=== PATIENT | female | born 1930 | race Caucasian/White ===

== ENCOUNTER 2018-06-08 08:29 | Inpatient (IN) ==
[2018-06-11] MEDS ORDERED: Nitroglycerin 0.4 MG TAB.SUBL SL PRN (15:32)
[2018-06-11] MEDS ORDERED: Ipratropium/Albuterol Neb 3 ML IH PRN (15:32)
[2018-06-11] MEDS ORDERED: *HR* LORazepam 0.5 MG TABLET PO PRN (15:32)
[2018-06-11] MEDS ORDERED: *HR* HYDROcodone/Acet 7.5/325 mg TABLET PO PRN (15:32)
[2018-06-11] MEDS: Ondansetron ODT 4 MG TAB.RAPDIS SL PRN (16:46)
[2018-06-11] MEDS: Scopolamine Patch 1.5 MG PATCH.TD72 TD SCH (16:46)
--- NOTE | 2018-06-11 17:11 | Internal Med History&Physical ---
Date of Encounter: 06/11/18 Time of Encounter: 16:45 Assessment and Plan (1) Colon cancer Current visit: No Status: Acute Status post resection 06/04/2018. Continue postop care and follow-up with surgeon as directed. Qualifiers: Colon location: descending Qualified Code(s): C18.6 - Malignant neoplasm of descending colon (2) HTN (hypertension) Current visit: No Status: Chronic Continue Coreg and Lasix. Qualifiers: Hypertension type: essential hypertension Qualified Code(s): I10 - Essential (primary) hypertension (3) Hypothyroidism Current visit: No Status: Chronic TSH was slightly elevated at 7.025 on 05/07/2018. Recheck in a.m. Qualifiers: Hypothyroidism type: unspecified Qualified Code(s): E03.9 - Hypothyroidism , unspecified Internal Medicine - H&P: HPI Chief complaint: Colon cancer resection Admitted From: Hospital to Hospital Transfer Plans for Post Hospital Care: Home History of present illness: Ms. Ariza is a 88 year old female underwent elective partial transverse/ distal colectomy 06/04/2018 at [facility] for colon cancer. Her postop course was unremarkable and she was discharged to [facility] swing bed for ongoing care needs. The cancer was stage IIA. She states she is now cancer free. She denies other previous malignancies blood disorders or anemia. Past Med Surg Social Fam HX - Past Medical History Medical history: arthritis, atrial fibrillation, CHF, dementia, hyperlipidemia, hypertension, other Psychiatric history: anxiety, depression - Past Surgical History Surgical History: cataract, hysterectomy, knee replacement, thyroidectomy, other Additional surgical history: right hip surgery, goiter, left knee replacement, colonoscopy, Mohs sx rt helix, cataract b/l, LAYLA, thyroidectomy - Social History Smoking Status: Never smoker Smokeless Tobacco Status: No Alcohol use: none Drug use: none - Family History Mother Family Member Ethnicity: Non- Living Status: Hx Family Cardiac Disorders: Yes Hx Family Cancer: Yes (Sqaumous cell carcinoma) Father Family Member Ethnicity: Non- Living Status: Hx Family Cancer: Yes (Lung) Internal Medicine - H&P: Meds Carvedilol [Coreg] 25 mg PO BID 09/16/17 [History] Nitroglycerin [Nitrostat] 0.4 mg SL Q5M PRN 09/16/17 [History] Olmesartan Medoxomil [Benicar] 40 mg PO DAILY 09/16/17 [History] Rosuvastatin Calcium [Crestor] 10 mg PO DAILY 09/16/17 [History] Sertraline [Zoloft] 25 mg PO DAILY 09/16/17 [History] Dexlansoprazole [Dexilant] 60 mg PO DAILY 02/24/18 [History] LORazepam [Ativan] 0.5 mg PO TID PRN 02/24/18 [History] Levothyroxine Sodium [Levoxyl] 112 mcg PO DAILY 02/24/18 [History] Furosemide [Lasix] 40 mg PO DAILY 7 Days #7 tablet 03/01/18 [Rx] Ipratropium/Albuterol Neb [Duoneb] 3 ml IH Q6HR PRN 7 Days #28 vial.neb [Rx] Calcium Carbonate/Vitamin D3 [Calcium 500 + Vit D Caplet] 1 each PO BID #60 tablet 04/19/18 [Rx] Ergocalciferol (VITAMIN D2) [Vitamin D] 400 unit PO BID #60 tablet 04/19/18 [Rx] Docusate [Colace] 100 mg PO BID PRN #30 capsule 06/11/18 [Rx] HYDROcodone/Acet 7.5/325 mg [[place] 7.5-325 mg] 1 tab PO Q6H PRN 7 Days #28 tablet 06/11/18 [Rx] Ondansetron ODT [Zofran ODT] 4 mg SL Q4HR PRN #15 tab.rapdis 06/11/18 [Rx] Scopolamine Patch [Transderm-Scop] 1.5 mg TD Q72H patch.td72 06/11/18 [Rx] 3 Allergy/AdvReac Type Severity Reaction Status Date / Time codeine Allergy Rash Verified 09/15/17 16:16 Opioids - Morphine Analogues Allergy Rash Verified 09/15/17 16:16 Sulfa (Sulfonamide Allergy Rash Verified 09/15/17 16:16 Antibiotics) cephalexin AdvReac Nausea Verified 04/19/18 13:13 All Systems PM: A 10-system review of systems was performed and is negative for pertinent findings except as documented above in the HPI. Review of systems: Gen.: Her weight has decreased from 64.41 kg on 09/20/2017 to 49.442 kg on admission now. Cardiovascular: She has history of hypertension. She has reported paroxysmal atrial fibrillation but cardiology evaluation 09/02/2018 reports patient has never had confirmed atrial fibrillation. She has sinus rhythm with PACs.. She has been on Coumadin and Xarelto in the past for DVT but developed GI bleeding. Echocardiogram 05/02/2018 showed LVEF of 60-65% with interventricular septum and posterior wall thickness measurements slightly elevated at 1.20 cm each. There was mild diastolic dysfunction with E/A ratio of 0.6. There was mild aortic regurgitation and stenosis with mean gradient of 16 mmHg. Respiratory: She is a lifelong nonsmoker and denies chronic lung disease. She has history of MAAME and has CPAP at home. GI: She had recent segmental colon resection as per above. She denies disorders of her liver gallbladder or exocrine pancreas. : She has had hysterectomy. She denies disorders of her kidney or bladder. Neurologic: She denies large distribution strokes or seizures. Endocrine: She had goiter resection at age 18. She has hypothyroidism and is on Synthroid. She denies diabetes. She has hyperlipidemia. Hematology/oncology: As per history of present illness Psychiatric: She has anxiety and depression denies other mental health issues [place] skeletal: She has DJD but denies gout or other bone joint or muscle disorders. - Constitutional Vitals: Temp Pulse Resp BP Pulse Ox 99.2 F 72 16 143/66 97 06/11/18 14:33 06/11/18 14:33 06/11/18 14:33 06/11/18 14:33 06/11/18 14:33 Exam: Gen.: She is a well-developed lean female resting comfortably in bed who appears in no acute distress HEENT: Head is atraumatic and normocephalic. Eyes: EOMI. There is no scleral icterus. Mouth: Mucosa is moist. Neck: Supple and nontender. There is no thyromegaly or adenopathy noted. Heart: Regular without murmurs gallops or ectopics Lungs: No wheezes or crackles are heard. Back: She has dorsal kyphosis. There is no flank tenderness. Abdomen: She has a midline incision in the upper abdominal area approximately 8 cm length with staple closure. No masses or guarding are noted. The abdomen is nontender to palpation. Extremities: There is no cyanosis edema or clubbing noted. Dorsalis pedis and posttibial pulses are trace to 1+ palpable bilaterally. She has DJD changes of her hands. Neurologic: Mental status: She is talkative and seems to be a fair to good historian. She does not remember some details of her history. Cranial nerves: Smile is symmetric. Forehead wrinkles bilaterally. Tongue protrudes midline. EOMI. Motor: There is no pronator drift. Cerebellar: Finger to nose is intact bilaterally. Skin: Warm and dry
[2018-06-11] MEDS: (Calcium Carbonate/Vitamin D3 [Calcium 500 + Vit D Ca) PO SCH (21:01)
[2018-06-12 06:01] LABS: Basophils # 0.1 K/mcL (0.0-0.2); Basophils % 0.7 %; Eosinophils # 0.6 K/mcL (0.0-0.6); Hematocrit 37.1 % (35.3-44.9); Immature Granulocytes % 0.4 % (0-4); Mean Corpuscular HGB Conc 32.3 g/dL (31.6-35.5); Mean Corpuscular Hemoglobin 29.1 pg (28.0-33.3); Mean Platelet Volume 10.2 fL (9.4-12.4); Monocytes # 0.5 K/mcL (0.0-1.3); Monocytes % 7.3 %; Neutrophils # 4.6 K/mcL (1.6-8.9); Platelet Count 145 K/mcL (140-400); Red Blood Count 4.12 M/mcL (3.82-4.97); Red Cell Distribution Width 14.9 % (11.5-14.5); Segmented Neutrophils % 67.6 %
[2018-06-12 06:28] LABS: BUN/Creatinine Ratio 19 (6-26); Blood Urea Nitrogen 16 mg/dL (8-23); Calcium 8.8 mg/dL (8.6-10.3); Carbon Dioxide 26 mEq/L (23-29); Chloride 106 mEq/L (98-107); Glucose 91 mg/dL (70-105); Osmolality,Calculated 289 (280-300); Potassium 3.9 mEq/L (3.5-5.1); Sodium 139 mEq/L (136-145); eGFR For Non-African Americans > 60 (> 60)
[2018-06-12] MEDS ORDERED: Levothyroxine 25 MCG TABLET PO SCH (06:30)
[2018-06-12] MEDS: Furosemide 40 MG TABLET PO SCH (08:59)
[2018-06-12] MEDS: (Calcium Carbonate/Vitamin D3 [Calcium 500 + Vit D Ca) PO SCH ×2 (08:59→22:10)
[2018-06-12] MEDS: Valsartan 160 MG TABLET PO SCH (09:01)
--- NOTE | 2018-06-12 15:59 | Internal Med Progress Note ---
Date of Encounter: 06/12/18 Time of Encounter: 15:50 - Assessment and plan (1) Colon cancer Current Visit: No Status: Acute Assessment and plan: June 12. Status post resection 06/04/2018. Continue postop care and follow up with surgeon as directed. Qualifiers: Colon location: descending Qualified Code(s): C18.6 - Malignant neoplasm of descending colon (2) HTN (hypertension) Current Visit: No Status: Chronic Assessment and plan: June 12. Continue Coreg, Diovan and Lasix Qualifiers: Hypertension type: essential hypertension Qualified Code(s): I10 - Essential (primary) hypertension (3) Hypothyroidism Current Visit: No Status: Chronic Assessment and plan: June 12. TSH is normal at 3.769. Continue present dose Synthroid. Qualifiers: Hypothyroidism type: unspecified Qualified Code(s): E03.9 - Hypothyroidism , unspecified - Subjective Interval history: June 12. She has no new complaints. - Constitutional Vitals: Temp Pulse Resp BP Pulse Ox 100.6 F H 78 17 159/71 97 06/12/18 13:09 06/12/18 13:09 06/12/18 13:09 06/12/18 13:09 06/12/18 13:09 Exam: She is resting comfortably in bed and appears in no acute distress. Her affect is bright and cheerful. I reviewed her medications and lab results. Internal Medicine: Result - Labs CBC & Chem 7: 06/12/18 05:45 06/12/18 05:45 Labs: Short CBC 06/12/18 Range/Units 05:45 WBC 6.8 (4.3-11.1) K/mcL Hgb 12.0 (11.5-15.4) g/dL Hct 37.1 (35.3-44.9) % Plt Count 145 (140-400) K/mcL Neutrophils # 4.6 (1.6-8.9) K/mcL BMP 06/12/18 05:45 Sodium 139 Potassium 3.9 Chloride 106 Carbon Dioxide 26 BUN 16 Creatinine 0.83 Glucose 91 Calcium 8.8 - VTE Documentation of Mechanical Device: Graduated compression elastic hosiery Consult Discharge Plan - Plan Referrals: Keon Marquez MD [Primary Care Provider] - 1 week
[2018-06-12] MEDS: Ondansetron ODT 4 MG TAB.RAPDIS SL PRN (17:26)
[2018-06-12] MEDS: Cholecalciferol (D-3) 1,000 UNIT TABLET PO SCH (22:10)
[2018-06-13] MEDS: Valsartan 160 MG TABLET PO SCH (08:57)
[2018-06-13] MEDS: Furosemide 40 MG TABLET PO SCH (08:59)
[2018-06-13] MEDS: (Calcium Carbonate/Vitamin D3 [Calcium 500 + Vit D Ca) PO SCH (09:02)
[2018-06-13] MEDS: Ondansetron ODT 4 MG TAB.RAPDIS SL PRN ×3 (11:34→20:28)
[2018-06-13] MEDS: Cholecalciferol (D-3) 1,000 UNIT TABLET PO SCH (20:27)
[2018-06-14] MEDS: (Calcium Carbonate/Vitamin D3 [Calcium 500 + Vit D Ca) PO SCH ×3 (04:50→20:22)
[2018-06-14] MEDS: Ondansetron ODT 4 MG TAB.RAPDIS SL PRN ×3 (06:15→14:59)
[2018-06-14] MEDS: Furosemide 40 MG TABLET PO SCH (08:23)
[2018-06-14] MEDS: Valsartan 160 MG TABLET PO SCH (08:27)
--- NOTE | 2018-06-14 12:02 | Internal Med Progress Note ---
Date of Encounter: 06/14/18 Time of Encounter: 11:55 - Assessment and plan (1) Colon cancer Current Visit: No Status: Acute Assessment and plan: June 12. Status post resection 06/04/2018. Continue postop care and follow up with surgeon as directed. June 14. Continue present care. Anticipate discharge home 06/16/2018 with home health services. Qualifiers: Colon location: descending Qualified Code(s): C18.6 - Malignant neoplasm of descending colon (2) HTN (hypertension) Current Visit: No Status: Chronic Assessment and plan: June 12. Continue Coreg, Diovan and Lasix Qualifiers: Hypertension type: essential hypertension Qualified Code(s): I10 - Essential (primary) hypertension (3) Hypothyroidism Current Visit: No Status: Chronic Assessment and plan: June 12. TSH is normal at 3.769. Continue present dose Synthroid. Qualifiers: Hypothyroidism type: unspecified Qualified Code(s): E03.9 - Hypothyroidism , unspecified - Subjective Interval history: June 12. She has no new complaints. June 14. She has no new complaints and feels well. - Constitutional Vitals: Temp Pulse Resp BP Pulse Ox 98.3 F 64 14 172/71 96 06/14/18 07:22 06/14/18 07:22 06/14/18 07:22 06/14/18 07:22 06/14/18 07:22 Exam: She is resting comfortably in bed and appears in no acute distress. Her affect is bright and cheerful. I reviewed her medications and lab results. Internal Medicine: Result - Labs CBC & Chem 7: 06/12/18 05:45 06/12/18 05:45 - VTE Documentation of Mechanical Device: Graduated compression elastic hosiery Consult Discharge Plan - Plan Referrals: Keon Marquez MD [Primary Care Provider] - 06/20/18 1:00 pm (Moni see Eboni Pearl [employer])
[2018-06-14] MEDS: Scopolamine Patch 1.5 MG PATCH.TD72 TD SCH (15:00)
[2018-06-14] MEDS: Cholecalciferol (D-3) 1,000 UNIT TABLET PO SCH (20:21)
[2018-06-15] MEDS: Ondansetron ODT 4 MG TAB.RAPDIS SL PRN ×3 (07:30→16:23)
[2018-06-15] MEDS: Furosemide 40 MG TABLET PO SCH (08:26)
[2018-06-15] MEDS: Valsartan 160 MG TABLET PO SCH (08:27)
[2018-06-15] MEDS: (Calcium Carbonate/Vitamin D3 [Calcium 500 + Vit D Ca) PO SCH ×2 (08:32→20:20)
[2018-06-15] MEDS: Cholecalciferol (D-3) 1,000 UNIT TABLET PO SCH (20:19)
[2018-06-16 08:23] VITALS: BP 155/68
--- NOTE | 2018-06-16 09:13 | Discharge Summary ---
Date of Encounter: 06/16/18 Time of Encounter: 09:05 - Discharge Diagnosis (1) Colon cancer Priority: Primary Status: Acute Qualifiers: Colon location: descending Qualified Code(s): C18.6 - Malignant neoplasm of descending colon (2) HTN (hypertension) Priority: Secondary Status: Chronic Qualifiers: Hypertension type: essential hypertension Qualified Code(s): I10 - Essential (primary) hypertension (3) Hypothyroidism Priority: Secondary Status: Chronic Qualifiers: Hypothyroidism type: unspecified Qualified Code(s): E03.9 - Hypothyroidism , unspecified Hospital course: Ms. Ariza is a 88 year old female who underwent elective partial transverse/ distal colectomy 06/04/2018 at [facility] for colon cancer. Her postop course was unremarkable and she was discharged to [facility] swing bed for ongoing care needs. Initial orders written by the emergency room physician. I saw her on June 11 and performed a history and physical. She had physical therapy and occupational therapy evaluation with ongoing intervention. She made satisfactory progress. There were no complications and on June 16 arrangements were complete for her to be discharged home. She will have home health services. She will follow with her PCP within 1 week. She will follow with surgeons as directed. - Time Spent with Patient Total time spent providing and/or coordinating discharge services: - Discharge Medications Home Medications: Carvedilol [Coreg] 25 mg PO BID 09/16/17 [History] Nitroglycerin [Nitrostat] 0.4 mg SL Q5M PRN 09/16/17 [History] Olmesartan Medoxomil [Benicar] 40 mg PO DAILY 09/16/17 [History] Rosuvastatin Calcium [Crestor] 10 mg PO DAILY 09/16/17 [History] Sertraline [Zoloft] 25 mg PO DAILY 09/16/17 [History] Dexlansoprazole [Dexilant] 60 mg PO DAILY 02/24/18 [History] LORazepam [Ativan] 0.5 mg PO TID PRN 02/24/18 [History] Levothyroxine Sodium [Levoxyl] 112 mcg PO DAILY 02/24/18 [History] Furosemide [Lasix] 40 mg PO DAILY 7 Days #7 tablet 03/01/18 [Rx] Ipratropium/Albuterol Neb [Duoneb] 3 ml IH Q6HR PRN 7 Days #28 vial.neb [Rx] Calcium Carbonate/Vitamin D3 [Calcium 500 + Vit D Caplet] 1 each PO BID #60 tablet 04/19/18 [Rx] Ergocalciferol (VITAMIN D2) [Vitamin D] 400 unit PO BID #60 tablet 04/19/18 [Rx] Docusate [Colace] 100 mg PO BID PRN #30 capsule 06/11/18 [Rx] HYDROcodone/Acet 7.5/325 mg [[place] 7.5-325 mg] 1 tab PO Q6H PRN 7 Days #28 tablet 06/11/18 [Rx] Ondansetron ODT [Zofran ODT] 4 mg SL Q4HR PRN #15 tab.rapdis 06/11/18 [Rx] Scopolamine Patch [Transderm-Scop] 1.5 mg TD Q72H patch.td72 06/11/18 [Rx] Allergies/Adverse Reactions: 3 Allergy/AdvReac Type Severity Reaction Status Date / Time codeine Allergy Rash Verified 09/15/17 16:16 Opioids - Morphine Analogues Allergy Rash Verified 09/15/17 16:16 Sulfa (Sulfonamide Allergy Rash Verified 09/15/17 16:16 Antibiotics) cephalexin AdvReac Nausea Verified 04/19/18 13:13 Date of admission: 06/11/18 14:16 Primary care physician: Keon Marquez MD Consults: 06/11/18 15:14 Consult to Occupational Therapy [CONS] Routine Comment: Evaluate, Plan and Implement Plan of Care Reason for Consult: Evaluate, Plan and Implement plan of care Does patient have active BEDREST order?: No Is patient medically & hemodynamically stable?: No Patient assessed for mobility or mobilized this visit?: Yes Consult to Physical Therapy [CONS] Routine Comment: Evaluate Plan and Imlement Plan of Care Reason for Consult: Evaluate, Plan, and Implement Plan of care Does patient have active BEDREST order?: No Is patient medically & hemodynamically stable?: Yes Patient assessed for mobility or mobilized this visit?: Yes Consult to Rate Examiner [CONS] Routine Reason for SW Consult: Discharge planning - Constitutional Vitals: Temp Pulse Resp BP Pulse Ox 99.1 F 77 16 155/68 95 06/16/18 08:22 06/16/18 08:22 06/16/18 08:22 06/16/18 08:22 06/16/18 08:22 - Patient Status Disposition: Home Health Service - Discharge Instructions Follow Up With: Keon Marquez MD [Primary Care Provider] - 06/20/18 1:00 pm (Moni see Eboni Pearl [facility]) - Diet and Activity Activity: resume usual activities as tolerated Diet: advance to your usual diet - VTE Documentation of Mechanical Device: Graduated compression elastic hosiery
--- NOTE | 2018-06-16 09:14 | Physician Discharge Referral ---
Home Health/Hosp Referral Info Transfer to: Home Health Attending Provider: Raffy Provider in Charge Post Discharge: PCP Gerard) - Diagnosis (1) Colon cancer Priority: Primary Status: Acute (2) HTN (hypertension) Priority: Secondary Status: Chronic (3) Hypothyroidism Priority: Secondary Status: Chronic - Respiratory Orders Smoking Cessation: Smoking cessation has been advised. For more information, call the [place] Tobacco Quit Line at 8-518-MAMK-NOW. - Diet/Nutrition Diet/Nutrition Orders: Regular - Activity Activity Orders: Walker - Services Needed Following services are medically necessary services: Nursing, Home Health Aide, Physical Therapy, Occupational Therapy - Transfer Medications Home Medications: Carvedilol [Coreg] 25 mg PO BID 09/16/17 [History] Nitroglycerin [Nitrostat] 0.4 mg SL Q5M PRN 09/16/17 [History] Olmesartan Medoxomil [Benicar] 40 mg PO DAILY 09/16/17 [History] Rosuvastatin Calcium [Crestor] 10 mg PO DAILY 09/16/17 [History] Sertraline [Zoloft] 25 mg PO DAILY 09/16/17 [History] Dexlansoprazole [Dexilant] 60 mg PO DAILY 02/24/18 [History] LORazepam [Ativan] 0.5 mg PO TID PRN 02/24/18 [History] Levothyroxine Sodium [Levoxyl] 112 mcg PO DAILY 02/24/18 [History] Furosemide [Lasix] 40 mg PO DAILY 7 Days #7 tablet 03/01/18 [Rx] Ipratropium/Albuterol Neb [Duoneb] 3 ml IH Q6HR PRN 7 Days #28 vial.neb [Rx] Calcium Carbonate/Vitamin D3 [Calcium 500 + Vit D Caplet] 1 each PO BID #60 tablet 04/19/18 [Rx] Ergocalciferol (VITAMIN D2) [Vitamin D] 400 unit PO BID #60 tablet 04/19/18 [Rx] Docusate [Colace] 100 mg PO BID PRN #30 capsule 06/11/18 [Rx] HYDROcodone/Acet 7.5/325 mg [[place] 7.5-325 mg] 1 tab PO Q6H PRN 7 Days #28 tablet 06/11/18 [Rx] Ondansetron ODT [Zofran ODT] 4 mg SL Q4HR PRN #15 tab.rapdis 06/11/18 [Rx] Scopolamine Patch [Transderm-Scop] 1.5 mg TD Q72H patch.td72 06/11/18 [Rx] Allergies/Adverse Reactions: 3 Allergy/AdvReac Type Severity Reaction Status Date / Time codeine Allergy Rash Verified 09/15/17 16:16 Opioids - Morphine Analogues Allergy Rash Verified 09/15/17 16:16 Sulfa (Sulfonamide Allergy Rash Verified 09/15/17 16:16 Antibiotics) cephalexin AdvReac Nausea Verified 04/19/18 13:13 Certification: Further, I certify that my clinical findings support that this patient is homebound (i.e. absences from home require considerable and taxing effort and are for medical reasons or sabianist services or infrequently or short duration when for other reasons) because: Homebound Reason: Leaving home requires considerable and taxing effort due to condition (Recent colon cancer resection surgery, weakness with ambulation.) Attestation: My signature below is to certify that this patient is under my care and that I, or nurse practitioner, or a physician's physician's assistant working with me, has a face-to -face encounter with this patient.
[2018-06-16] MEDS: (Calcium Carbonate/Vitamin D3 [Calcium 500 + Vit D Ca) PO SCH (10:05)
[2018-06-16] MEDS: Valsartan 160 MG TABLET PO SCH (10:05)
[2018-06-16] MEDS: Furosemide 40 MG TABLET PO SCH (10:05)
== END 2018-06-16 11:18 | disposition home health service (06) | DRG 376 ==
LOC: INPPIK 06-11 14:16
PROVIDERS: ADMIT Internal Medicine; ATTEND Internal Medicine

== ENCOUNTER 2018-06-21 16:11 | Inpatient (IN) ==
[2018-06-22] MEDS ORDERED: Bisacodyl 10 MG RECTAL SUPPOSITORY RC SCH (09:00)
[2018-06-22] MEDS ORDERED: hydrALAZINE 25 MG TABLET PO SCH (09:00)
[2018-06-22] MEDS: Sennosides/Docusate Sodium TABLET PO SCH ×2 (09:52→22:48)
[2018-06-22] MEDS: Multivit/Ca/Min/Fe/FA 1 TAB TABLET PO SCH (09:53)
[2018-06-22] MEDS: MOM Conc 10 ML UD.LIQ PO SCH (09:59)
[2018-06-22] MEDS: Miconazole 2% cream 118 GM TUBE TP SCH ×2 (10:03→22:48)
--- NOTE | 2018-06-22 16:15 | Internal Med History&Physical ---
Date of Encounter: 06/22/18 Time of Encounter: 15:55 Assessment and Plan (1) Humerus shaft fracture Current visit: Yes Status: Acute Continue immobilization. Analgesics will be given as needed. Check vitamin D level. Qualifiers: Encounter type: subsequent encounter Fracture type: closed Fracture morphology: unspecified fracture morphology Laterality: right Fracture healing: with routine healing Qualified Code(s): S42.301D - Unspecified fracture of shaft of humerus, right arm, subsequent encounter for fracture with routine healing (2) Compression fracture of L4 lumbar vertebra Current visit: Yes Status: Acute Continue analgesics. Check vitamin D level. Qualifiers: Encounter type: subsequent encounter Fracture type: closed Fracture healing: with routine healing Qualified Code(s): S32.040D - Wedge compression fracture of fourth lumbar vertebra, subsequent encounter for fracture with routine healing (3) HTN (hypertension) Current visit: No Status: Chronic Continue Coreg and hydralazine. Qualifiers: Hypertension type: essential hypertension Qualified Code(s): I10 - Essential (primary) hypertension (4) Hypothyroidism Current visit: No Status: Chronic TSH was normal at 3.769 on 06/12/2018. Continue present dose Synthroid. Qualifiers: Hypothyroidism type: unspecified Qualified Code(s): E03.9 - Hypothyroidism , unspecified Internal Medicine - H&P: HPI Chief complaint: Right humerus and L4 fracture Admitted From: Hospital to Hospital Transfer Plans for Post Hospital Care: Home History of present illness: Ms. Ariza is a 88 year old female who was hospitalized at [facility] June 16 after a fall at home. She sustained right humerus shaft fracture and L4 superior endplate compression fracture, possibly acute on chronic. She had conservative nonoperative treatment for the humerus fracture with immobilizer/sling placement. She was discharged to [facility] swing bed for ongoing care needs. She had been hospitalized at [facility] swing bed June 11 following an [facility] hospitalization for partial transverse/distal colectomy for stage IIa colon cancer. [facility] [place] [place] history is pertinent for DJD and old compression fractures of T6, T9, and L2. There is no history of gout or other bone joint or muscle disorders. Past Med Surg Social Fam HX - Past Medical History Medical history: arthritis, atrial fibrillation, CHF, dementia, hyperlipidemia, hypertension, other Psychiatric history: anxiety, depression - Past Surgical History Surgical History: cataract, hysterectomy, knee replacement, thyroidectomy, other Additional surgical history: right hip surgery, goiter, left knee replacement, colonoscopy, Mohs sx rt helix, cataract b/l, LAYLA, thyroidectomy, Colon Resection - Social History Smoking Status: Never smoker Smokeless Tobacco Status: No Alcohol use: none Drug use: none - Family History Mother Family Member Ethnicity: Non- Living Status: Hx Family Cardiac Disorders: Yes Hx Family Cancer: Yes (Sqaumous cell carcinoma) Father Family Member Ethnicity: Non- Living Status: Hx Family Cancer: Yes (Lung) Internal Medicine - H&P: Meds Carvedilol [Coreg] 12.5 mg PO BID 09/16/17 [History] Nitroglycerin [Nitrostat] 0.4 mg SL Q5M PRN 09/16/17 [History] Rosuvastatin Calcium [Crestor] 10 mg PO DAILY 09/16/17 [History] Sertraline [Zoloft] 25 mg PO DAILY 09/16/17 [History] Dexlansoprazole [Dexilant] 60 mg PO DAILY 02/24/18 [History] LORazepam [Ativan] 0.5 mg PO TID PRN 02/24/18 [History] Levothyroxine Sodium [Levoxyl] 112 mcg PO DAILY 02/24/18 [History] Ipratropium/Albuterol Neb [Duoneb] 3 ml IH Q6HR PRN 7 Days #28 vial.neb [Rx] Calcium Carbonate/Vitamin D3 [Calcium 500 + Vit D Caplet] 1 each PO BID #60 tablet 04/19/18 [Rx] Ergocalciferol (VITAMIN D2) [Vitamin D] 400 unit PO BID #60 tablet 04/19/18 [Rx] Docusate [Colace] 100 mg PO BID PRN #30 capsule 06/11/18 [Rx] Ondansetron ODT [Zofran ODT] 4 mg SL Q4HR PRN #15 tab.rapdis 06/11/18 [Rx] Scopolamine Patch [Transderm-Scop] 1.5 mg TD Q72H patch.td72 06/11/18 [Rx] 3 Allergy/AdvReac Type Severity Reaction Status Date / Time codeine Allergy Rash Verified 09/15/17 16:16 Opioids - Morphine Analogues Allergy Rash Verified 09/15/17 16:16 Sulfa (Sulfonamide Allergy Rash Verified 09/15/17 16:16 Antibiotics) cephalexin AdvReac Nausea Verified 04/19/18 13:13 All Systems PM: A 10-system review of systems was performed and is negative for pertinent findings except as documented above in the HPI. Review of systems: Review of systems from her recent May 2018 swing bed stay were reviewed and revised as below. Gen.: Her weight has decreased from 64.41 kg on 09/20/2017 to 44.8 kg on admission now. Cardiovascular: She has history of hypertension. She has reported paroxysmal atrial fibrillation but cardiology evaluation 09/02/2018 reports patient has never had confirmed atrial fibrillation. She has sinus rhythm with PACs.. She has been on Coumadin and Xarelto in the past for DVT but developed GI bleeding. Echocardiogram 05/02/2018 showed LVEF of 60-65% with interventricular septum and posterior wall thickness measurements slightly elevated at 1.20 cm each. There was mild diastolic dysfunction with E/A ratio of 0.6. There was mild aortic regurgitation and stenosis with mean gradient of 16 mmHg. Respiratory: She is a lifelong nonsmoker and denies chronic lung disease. She has history of MAAME and has CPAP at home. GI: She had recent segmental colon resection as per above. She denies disorders of her liver gallbladder or exocrine pancreas. : She has had hysterectomy. She denies disorders of her kidney or bladder. Neurologic: She denies large distribution strokes or seizures. Endocrine: She had goiter resection at age 18. She has hypothyroidism and is on Synthroid. She denies diabetes. She has hyperlipidemia. Hematology/oncology: She had recent colon cancer resection surgery as per above. She is presumed cancer free. She denies previous malignancies, blood disorders, or anemia. Psychiatric: She has anxiety and depression but denies other mental health issues [place] skeletal: As per history of present illness - Constitutional Vitals: Temp Pulse Resp BP Pulse Ox 98.6 F 80 14 126/66 94 06/22/18 15:28 06/22/18 15:28 06/22/18 15:28 06/22/18 15:28 06/22/18 15:28 Exam: Gen.: She is a well-developed frail female lying in bed who appears in no acute distress. She denies pain or dyspnea. HEENT: Head is atraumatic and normocephalic. Eyes: EOMI. There is no scleral icterus. Mouth: Mucosa is moist. Neck: There is no thyromegaly or adenopathy noted. Heart: Regular without murmurs gallops or ectopics Lungs: No wheezes or crackles are heard. Abdomen: Soft and nontender. No masses or guarding are noted. Extremities: The right arm is in an immobilizer sling with splint in place for stabilization of the humerus. There is significant edema of the dorsum of the right hand. She has significant DJD of her hands and feet. There is no pitting edema. Neurologic: Mental status: She is talkative and a good historian. Cranial nerves: Smile is symmetric. Forehead wrinkles bilaterally. Tongue protrudes midline. EOMI. Motor: There is no pronator drift (left arm). Cerebellar: Finger to nose is intact with the left hand and not attempted of the right hand. Skin: Warm and dry.
[2018-06-22] MEDS: Acetaminophen 325 MG TABLET PO PRN (17:16)
[2018-06-23] MEDS: Acetaminophen 325 MG TABLET PO PRN (02:33)
[2018-06-23] MEDS: *HR* HYDROcodone/Acet 5/325 mg TABLET PO PRN ×2 (04:09→13:20)
[2018-06-23] MEDS: Multivit/Ca/Min/Fe/FA 1 TAB TABLET PO SCH (08:06)
[2018-06-23] MEDS: Miconazole 2% cream 118 GM TUBE TP SCH ×2 (08:06→20:30)
[2018-06-23] MEDS: Sennosides/Docusate Sodium TABLET PO SCH ×2 (08:06→20:29)
[2018-06-23] MEDS: MOM Conc 10 ML UD.LIQ PO SCH (08:06)
[2018-06-23] MEDS: Ondansetron ODT 4 MG TAB.RAPDIS SL PRN (14:51)
--- NOTE | 2018-06-23 18:30 | Internal Med Progress Note ---
Date of Encounter: 06/23/18 Time of Encounter: 18:24 - Assessment and plan (1) Humerus shaft fracture Current Visit: Yes Status: Acute Assessment and plan: June 23. Continue mobilization and analgesics. Vitamin D level ordered. Qualifiers: Encounter type: subsequent encounter Fracture type: closed Fracture morphology: unspecified fracture morphology Laterality: right Fracture healing: with routine healing Qualified Code(s): S42.301D - Unspecified fracture of shaft of humerus, right arm, subsequent encounter for fracture with routine healing (2) Compression fracture of L4 lumbar vertebra Current Visit: Yes Status: Acute Assessment and plan: June 23. As above. Qualifiers: Encounter type: subsequent encounter Fracture type: closed Fracture healing: with routine healing Qualified Code(s): S32.040D - Wedge compression fracture of fourth lumbar vertebra, subsequent encounter for fracture with routine healing (3) HTN (hypertension) Current Visit: No Status: Chronic Assessment and plan: June 23. Continue Coreg and hydralazine. Qualifiers: Hypertension type: essential hypertension Qualified Code(s): I10 - Essential (primary) hypertension (4) Hypothyroidism Current Visit: No Status: Chronic Assessment and plan: June 23. TSH was normal at 3.769 on 06/12/2018. Continue present dose Synthroid. Qualifiers: Hypothyroidism type: unspecified Qualified Code(s): E03.9 - Hypothyroidism , unspecified - Subjective Interval history: June 23. She has no new complaints - Constitutional Vitals: Temp Pulse Resp BP Pulse Ox 98.3 F 66 16 178/77 94 06/23/18 05:56 06/23/18 05:56 06/23/18 05:56 06/23/18 05:56 06/23/18 05:56 Exam: She is resting comfortably in bed and appears in no acute distress. She denies significant pain at rest. Extremities show no edema. Her affect is overall cheerful. I reviewed her medications and past lab results. Consult Discharge Plan - Plan Referrals: Keon Marquez MD [Primary Care Provider] - 1 week
[2018-06-24] MEDS: Ondansetron ODT 4 MG TAB.RAPDIS SL PRN ×2 (04:53→14:45)
[2018-06-24 06:16] LABS: Basophils % 0.7 %; Eosinophils # 0.4 K/mcL (0.0-0.6); Eosinophils % 6.5 %; Hematocrit 32.7 % (35.3-44.9); Hemoglobin 10.5 g/dL (11.5-15.4); Immature Granulocytes % 0.5 % (0-4); Lymphocytes # 0.7 K/mcL (0.6-4.6); Lymphocytes % 11.6 %; Mean Corpuscular HGB Conc 32.1 g/dL (31.6-35.5); Mean Corpuscular Hemoglobin 30.1 pg (28.0-33.3); Mean Corpuscular Volume 93.7 fL (83.0-100.0); Mean Platelet Volume 10.2 fL (9.4-12.4); Monocytes # 0.5 K/mcL (0.0-1.3); Monocytes % 8.6 %; Neutrophils # 4.4 K/mcL (1.6-8.9); Platelet Count 215 K/mcL (140-400); Red Blood Count 3.49 M/mcL (3.82-4.97); Red Cell Distribution Width 13.9 % (11.5-14.5); Segmented Neutrophils % 72.1 %
[2018-06-24 06:37] LABS: BUN/Creatinine Ratio 21 (6-26); Blood Urea Nitrogen 21 mg/dL (8-23); Calcium 9.3 mg/dL (8.6-10.3); Carbon Dioxide 32 mEq/L (23-29); Chloride 102 mEq/L (98-107); Glucose 94 mg/dL (70-105); Osmolality,Calculated 293 (280-300); Potassium 4.1 mEq/L (3.5-5.1); Sodium 140 mEq/L (136-145); eGFR For Non-African Americans 51 (> 60)
[2018-06-24] MEDS: MOM Conc 10 ML UD.LIQ PO SCH (08:12)
[2018-06-24] MEDS: Miconazole 2% cream 118 GM TUBE TP SCH ×2 (08:12→20:17)
[2018-06-24] MEDS: *HR* HYDROcodone/Acet 5/325 mg TABLET PO PRN ×2 (08:14→20:16)
[2018-06-24] MEDS: Sennosides/Docusate Sodium TABLET PO SCH ×2 (08:14→20:16)
[2018-06-24] MEDS: Multivit/Ca/Min/Fe/FA 1 TAB TABLET PO SCH (08:14)
[2018-06-24] MEDS: *HR* LORazepam 0.5 MG TABLET PO PRN ×2 (08:14→20:17)
[2018-06-24] MEDS ORDERED: *HR* HYDROcodone/Acet 5/325 mg TABLET PO PRN (11:38)
[2018-06-25] MEDS: MOM Conc 10 ML UD.LIQ PO SCH (08:09)
[2018-06-25] MEDS: *HR* LORazepam 0.5 MG TABLET PO PRN ×2 (08:10→20:04)
[2018-06-25] MEDS: Sennosides/Docusate Sodium TABLET PO SCH ×2 (08:10→20:04)
[2018-06-25] MEDS: Acetaminophen 325 MG TABLET PO PRN (08:10)
[2018-06-25] MEDS: Multivit/Ca/Min/Fe/FA 1 TAB TABLET PO SCH (08:10)
[2018-06-25] MEDS: Miconazole 2% cream 118 GM TUBE TP SCH (08:11)
[2018-06-25] MEDS: *HR* HYDROcodone/Acet 5/325 mg TABLET PO PRN (20:04)
[2018-06-26] MEDS: Miconazole 2% cream 118 GM TUBE TP SCH ×2 (04:51→13:21)
[2018-06-26] MEDS: *HR* HYDROcodone/Acet 5/325 mg TABLET PO PRN ×2 (04:51→19:19)
[2018-06-26] MEDS: Multivit/Ca/Min/Fe/FA 1 TAB TABLET PO SCH (08:06)
[2018-06-26] MEDS: MOM Conc 10 ML UD.LIQ PO SCH (08:06)
[2018-06-26] MEDS: Sennosides/Docusate Sodium TABLET PO SCH ×2 (08:06→20:04)
[2018-06-26] MEDS: Ondansetron ODT 4 MG TAB.RAPDIS SL PRN (13:21)
--- NOTE | 2018-06-26 19:56 | Internal Med Progress Note ---
Date of Encounter: 06/26/18 Time of Encounter: 19:45 - Assessment and plan (1) Humerus shaft fracture Current Visit: Yes Status: Acute Assessment and plan: June 23. Continue mobilization and analgesics. Vitamin D level ordered. June 26. Vitamin D level normal at 33. Continue immobilization and therapy intervention. Qualifiers: Encounter type: subsequent encounter Fracture type: closed Fracture morphology: unspecified fracture morphology Laterality: right Fracture healing: with routine healing Qualified Code(s): S42.301D - Unspecified fracture of shaft of humerus, right arm, subsequent encounter for fracture with routine healing (2) Compression fracture of L4 lumbar vertebra Current Visit: Yes Status: Acute Assessment and plan: June 23. As above. Qualifiers: Encounter type: subsequent encounter Fracture type: closed Fracture healing: with routine healing Qualified Code(s): S32.040D - Wedge compression fracture of fourth lumbar vertebra, subsequent encounter for fracture with routine healing (3) HTN (hypertension) Current Visit: No Status: Chronic Assessment and plan: June 23. Continue Coreg and hydralazine. June 26. Blood pressures show significant fluctuation. Continue present regimen. Qualifiers: Hypertension type: essential hypertension Qualified Code(s): I10 - Essential (primary) hypertension (4) Hypothyroidism Current Visit: No Status: Chronic Assessment and plan: June 23. TSH was normal at 3.769 on 06/12/2018. Continue present dose Synthroid. Qualifiers: Hypothyroidism type: unspecified Qualified Code(s): E03.9 - Hypothyroidism , unspecified - Subjective Interval history: June 23. She has no new complaints June 26. She has no new complaints. She has no back pain. - Constitutional Vitals: Temp Pulse Resp BP Pulse Ox 98.6 F 67 17 109/53 91 06/26/18 19:12 06/26/18 19:12 06/26/18 19:12 06/26/18 19:12 06/26/18 19:12 Exam: She is resting comfortably in bed and appears in no acute distress. Her affect is bright and cheerful. I reviewed her medications and lab results. Internal Medicine: Result - Labs CBC & Chem 7: 06/24/18 06:05 06/24/18 06:05 Consult Discharge Plan - Plan Referrals: Keon Marquez MD [Primary Care Provider] - 1 week
[2018-06-27] MEDS: Miconazole 2% cream 118 GM TUBE TP SCH ×2 (00:31→12:52)
[2018-06-27] MEDS: Ondansetron ODT 4 MG TAB.RAPDIS SL PRN ×2 (04:33→18:47)
[2018-06-27] MEDS: Multivit/Ca/Min/Fe/FA 1 TAB TABLET PO SCH (09:37)
[2018-06-27] MEDS: Sennosides/Docusate Sodium TABLET PO SCH ×2 (09:37→20:40)
[2018-06-27] MEDS: MOM Conc 10 ML UD.LIQ PO SCH (09:37)
[2018-06-28] MEDS: MOM Conc 10 ML UD.LIQ PO SCH (10:03)
[2018-06-28] MEDS: Multivit/Ca/Min/Fe/FA 1 TAB TABLET PO SCH (10:04)
[2018-06-28] MEDS: Sennosides/Docusate Sodium TABLET PO SCH ×2 (10:04→20:46)
[2018-06-28] MEDS: Miconazole 2% cream 118 GM TUBE TP SCH ×3 (10:04→20:46)
[2018-06-28] MEDS: Ondansetron ODT 4 MG TAB.RAPDIS SL PRN ×2 (13:50→18:22)
--- NOTE | 2018-06-28 15:33 | Internal Med Progress Note ---
Date of Encounter: 06/28/18 Time of Encounter: 15:25 - Assessment and plan (1) Humerus shaft fracture Current Visit: Yes Status: Acute Assessment and plan: June 23. Continue mobilization and analgesics. Vitamin D level ordered. June 26. Vitamin D level normal at 33. Continue immobilization and therapy intervention. June 28. Continue present regimen and follow-up with an [facility] orthopedist. Qualifiers: Encounter type: subsequent encounter Fracture type: closed Fracture morphology: unspecified fracture morphology Laterality: right Fracture healing: with routine healing Qualified Code(s): S42.301D - Unspecified fracture of shaft of humerus, right arm, subsequent encounter for fracture with routine healing (2) Compression fracture of L4 lumbar vertebra Current Visit: Yes Status: Acute Assessment and plan: June 23. As above. Qualifiers: Encounter type: subsequent encounter Fracture type: closed Fracture healing: with routine healing Qualified Code(s): S32.040D - Wedge compression fracture of fourth lumbar vertebra, subsequent encounter for fracture with routine healing (3) HTN (hypertension) Current Visit: No Status: Chronic Assessment and plan: June 23. Continue Coreg and hydralazine. June 26. Blood pressures show significant fluctuation. Continue present regimen. Qualifiers: Hypertension type: essential hypertension Qualified Code(s): I10 - Essential (primary) hypertension (4) Hypothyroidism Current Visit: No Status: Chronic Assessment and plan: June 23. TSH was normal at 3.769 on 06/12/2018. Continue present dose Synthroid. Qualifiers: Hypothyroidism type: unspecified Qualified Code(s): E03.9 - Hypothyroidism , unspecified - Subjective Interval history: June 23. She has no new complaints June 26. She has no new complaints. She has no back pain. June 28. She has no new complaints. She feels she is progressing well in therapy. Her daughter requested attempt made to transfer her orthopedic care from [place] physicians to [facility] physician. This has been accomplished with appointments made for June 29 and July 02 with [facility] physicians. - Constitutional Vitals: Temp Pulse Resp BP Pulse Ox 98.7 F 64 18 184/71 95 06/28/18 06:54 06/28/18 06:54 06/28/18 06:54 06/28/18 06:54 06/28/18 06:54 Exam: She is resting comfortably in bed and appears in no acute distress. Her affect is bright and cheerful. I reviewed her medications and lab results. Internal Medicine: Result - Labs CBC & Chem 7: 06/24/18 06:05 06/24/18 06:05 - Impressions Impressions Shoulder X-Ray 06/28/18 13:33 IMPRESSION: Studies of the right shoulder and right humerus demonstrate acute appearing, traumatic, comminuted, displaced fracture to the right humeral shaft with associated soft tissue swelling and subcutaneous edema. Mild degenerative changes to the AC joint. Diffuse bone demineralization. D/ / 06/28/2018 15:25:17 José Antonio Wasserman MD / [email or web address] Interpreting Provider: José Antonio Wasserman MD Thoracic Spine X-Ray 06/28/18 13:35 IMPRESSION: There appears to be a mildly displaced fracture involving the left posterior 5th rib, with slight sclerosis which may be related to a subacute injury. Multilevel degenerative changes seen in the thoracic spine with an exaggerated kyphosis, with minimal wedge compression deformities which are unchanged from previous examinations. No acute fracture is identified. D/ / Ravi Davey MD / Ravi Davey MD Interpreting Provider: Ravi Davey MD Humerus X-Ray 06/28/18 13:36 IMPRESSION: Studies of the right shoulder and right humerus demonstrate acute appearing, traumatic, comminuted, displaced fracture to the right humeral shaft with associated soft tissue swelling and subcutaneous edema. Mild degenerative changes to the AC joint. Diffuse bone demineralization. D/ / 06/28/2018 15:25:17 José Antonio Wasserman MD / [email or web address] Interpreting Provider: José Antonio Wasserman MD Consult Discharge Plan - Plan Referrals: Keon Marquez MD [Primary Care Provider] - 1 week
[2018-06-29] MEDS: Sennosides/Docusate Sodium TABLET PO SCH ×2 (08:18→20:30)
[2018-06-29] MEDS: MOM Conc 10 ML UD.LIQ PO SCH (08:18)
[2018-06-29] MEDS: Multivit/Ca/Min/Fe/FA 1 TAB TABLET PO SCH (08:18)
[2018-06-29] MEDS: Miconazole 2% cream 118 GM TUBE TP SCH ×2 (08:23→20:30)
[2018-06-29] MEDS: *HR* HYDROcodone/Acet 5/325 mg TABLET PO PRN (09:12)
[2018-06-30] MEDS: Ondansetron ODT 4 MG TAB.RAPDIS SL PRN (06:48)
[2018-06-30] MEDS: Multivit/Ca/Min/Fe/FA 1 TAB TABLET PO SCH (08:32)
[2018-06-30] MEDS: Sennosides/Docusate Sodium TABLET PO SCH ×2 (08:32→20:27)
[2018-06-30] MEDS: MOM Conc 10 ML UD.LIQ PO SCH (08:32)
[2018-06-30] MEDS: Miconazole 2% cream 118 GM TUBE TP SCH ×2 (08:45→20:27)
[2018-06-30] MEDS: Multivitamin Liquid 15 ML UDC PO SCH (10:52)
[2018-07-01] MEDS: Multivitamin Liquid 15 ML UDC PO SCH (09:20)
[2018-07-01] MEDS: MOM Conc 10 ML UD.LIQ PO SCH (09:21)
[2018-07-01] MEDS: Miconazole 2% cream 118 GM TUBE TP SCH ×2 (09:23→20:08)
[2018-07-01] MEDS: Sennosides/Docusate Sodium TABLET PO SCH ×2 (09:23→17:24)
--- NOTE | 2018-07-01 15:39 | Internal Med Progress Note ---
Date of Encounter: 07/01/18 Time of Encounter: 15:30 - Assessment and plan (1) Humerus shaft fracture Current Visit: Yes Status: Acute Assessment and plan: June 23. Continue mobilization and analgesics. Vitamin D level ordered. June 26. Vitamin D level normal at 33. Continue immobilization and therapy intervention. June 28. Continue present regimen and follow-up with an [facility] orthopedist. Qualifiers: Encounter type: subsequent encounter Fracture type: closed Fracture morphology: unspecified fracture morphology Laterality: right Fracture healing: with routine healing Qualified Code(s): S42.301D - Unspecified fracture of shaft of humerus, right arm, subsequent encounter for fracture with routine healing (2) Compression fracture of L4 lumbar vertebra Current Visit: Yes Status: Acute Assessment and plan: June 23. As above. Qualifiers: Encounter type: subsequent encounter Fracture type: closed Fracture healing: with routine healing Qualified Code(s): S32.040D - Wedge compression fracture of fourth lumbar vertebra, subsequent encounter for fracture with routine healing (3) HTN (hypertension) Current Visit: No Status: Chronic Assessment and plan: June 23. Continue Coreg and hydralazine. June 26. Blood pressures show significant fluctuation. Continue present regimen. Qualifiers: Hypertension type: essential hypertension Qualified Code(s): I10 - Essential (primary) hypertension (4) Hypothyroidism Current Visit: No Status: Chronic Assessment and plan: June 23. TSH was normal at 3.769 on 06/12/2018. Continue present dose Synthroid. Qualifiers: Hypothyroidism type: unspecified Qualified Code(s): E03.9 - Hypothyroidism , unspecified (5) Rib fracture Current Visit: Yes Status: Acute Assessment and plan: July 01. Thoracic spine films showed mildly displaced left posterior fifth rib fracture with slight sclerosis possibly relating to subacute injury. Continue present regimen. Qualifiers: Encounter type: subsequent encounter Rib fracture type: single rib Fracture type: closed Laterality: left Fracture healing: with routine healing Qualified Code(s): S22.32XD - Fracture of one rib, left side, subsequent encounter for fracture with routine healing - Subjective Interval history: June 23. She has no new complaints June 26. She has no new complaints. She has no back pain. June 28. She has no new complaints. She feels she is progressing well in therapy. Her daughter requested attempt made to transfer her orthopedic care from [facility] to [place] physician. This has been accomplished with appointments made for June 29 and July 02 with [facility] physicians. July 01. She has no new complaints. - Constitutional Vitals: Temp Pulse Resp BP Pulse Ox 98.5 F 73 16 190/78 97 07/01/18 06:45 07/01/18 06:45 07/01/18 06:45 07/01/18 06:45 07/01/18 06:45 Exam: She is resting comfortably in bed and appears in no acute distress. Her affect is cheerful. I reviewed her medications, lab results, and x-ray reports from . Internal Medicine: Result - Labs CBC & Chem 7: 06/24/18 06:05 06/24/18 06:05 Consult Discharge Plan - Plan Referrals: Keon Marquez MD [Primary Care Provider] - 1 week
[2018-07-02] MEDS: Multivitamin Liquid 15 ML UDC PO SCH (08:24)
[2018-07-02] MEDS: MOM Conc 10 ML UD.LIQ PO SCH (08:26)
[2018-07-02] MEDS: Sennosides/Docusate Sodium TABLET PO SCH (08:26)
[2018-07-02] MEDS: Miconazole 2% cream 118 GM TUBE TP SCH ×2 (08:54→20:07)
[2018-07-03] MEDS: Sennosides/Docusate Sodium TABLET PO SCH ×3 (04:40→21:15)
[2018-07-03] MEDS: Multivitamin Liquid 15 ML UDC PO SCH (09:44)
[2018-07-03] MEDS: MOM Conc 10 ML UD.LIQ PO SCH (09:45)
[2018-07-03] MEDS: Miconazole 2% cream 118 GM TUBE TP SCH ×2 (09:46→21:15)
[2018-07-04] MEDS: Multivitamin Liquid 15 ML UDC PO SCH (08:27)
[2018-07-04] MEDS: Sennosides/Docusate Sodium TABLET PO SCH ×2 (08:28→21:07)
[2018-07-04] MEDS: MOM Conc 10 ML UD.LIQ PO SCH (08:29)
[2018-07-04] MEDS: Miconazole 2% cream 118 GM TUBE TP SCH ×2 (08:29→22:03)
--- NOTE | 2018-07-04 17:47 | Internal Med Progress Note ---
Date of Encounter: 07/04/18 Time of Encounter: 17:35 - Assessment and plan (1) Humerus shaft fracture Current Visit: Yes Status: Acute Assessment and plan: June 23. Continue mobilization and analgesics. Vitamin D level ordered. June 26. Vitamin D level normal at 33. Continue immobilization and therapy intervention. June 28. Continue present regimen and follow-up with an [facility] orthopedist. Qualifiers: Encounter type: subsequent encounter Fracture type: closed Fracture morphology: unspecified fracture morphology Laterality: right Fracture healing: with routine healing Qualified Code(s): S42.301D - Unspecified fracture of shaft of humerus, right arm, subsequent encounter for fracture with routine healing (2) Compression fracture of L4 lumbar vertebra Current Visit: Yes Status: Acute Assessment and plan: June 23. As above. Qualifiers: Encounter type: subsequent encounter Fracture type: closed Fracture healing: with routine healing Qualified Code(s): S32.040D - Wedge compression fracture of fourth lumbar vertebra, subsequent encounter for fracture with routine healing (3) HTN (hypertension) Current Visit: No Status: Chronic Assessment and plan: June 23. Continue Coreg and hydralazine. June 26. Blood pressures show significant fluctuation. Continue present regimen. Qualifiers: Hypertension type: essential hypertension Qualified Code(s): I10 - Essential (primary) hypertension (4) Hypothyroidism Current Visit: No Status: Chronic Assessment and plan: June 23. TSH was normal at 3.769 on 06/12/2018. Continue present dose Synthroid. Qualifiers: Hypothyroidism type: unspecified Qualified Code(s): E03.9 - Hypothyroidism , unspecified (5) Rib fracture Current Visit: Yes Status: Acute Assessment and plan: July 01. Thoracic spine films showed mildly displaced left posterior fifth rib fracture with slight sclerosis possibly relating to subacute injury. Continue present regimen. Qualifiers: Encounter type: subsequent encounter Rib fracture type: single rib Fracture type: closed Laterality: left Fracture healing: with routine healing Qualified Code(s): S22.32XD - Fracture of one rib, left side, subsequent encounter for fracture with routine healing - Subjective Interval history: June 23. She has no new complaints June 26. She has no new complaints. She has no back pain. June 28. She has no new complaints. She feels she is progressing well in therapy. Her daughter requested attempt made to transfer her orthopedic care from [facility] to [place] physician. This has been accomplished with appointments made for June 29 and July 02 with [facility] physicians. July 01. She has no new complaints. July 04. She has no new complaints. - Constitutional Vitals: Temp Pulse Resp BP Pulse Ox 98.5 F 69 16 178/67 94 07/04/18 08:09 07/04/18 08:09 07/04/18 08:09 07/04/18 08:09 07/03/18 20:17 Exam: She is sitting in bed resting comfortably and appears in no acute distress. Her affect is bright and cheerful. I reviewed her medications and lab results. Internal Medicine: Result - Labs CBC & Chem 7: 06/24/18 06:05 06/24/18 06:05 Consult Discharge Plan - Plan Referrals: Keon Marquez MD [Primary Care Provider] - 1 week
[2018-07-05 06:43] LABS: Basophils % 0.5 %; Eosinophils # 0.2 K/mcL (0.0-0.6); Eosinophils % 4.2 %; Hematocrit 34.6 % (35.3-44.9); Hemoglobin 11.1 g/dL (11.5-15.4); Immature Granulocytes % 0.4 % (0-4); Lymphocytes # 1.1 K/mcL (0.6-4.6); Lymphocytes % 18.8 %; Mean Corpuscular HGB Conc 32.1 g/dL (31.6-35.5); Mean Corpuscular Hemoglobin 30.4 pg (28.0-33.3); Mean Corpuscular Volume 94.8 fL (83.0-100.0); Mean Platelet Volume 11.3 fL (9.4-12.4); Monocytes # 0.5 K/mcL (0.0-1.3); Monocytes % 9.4 %; Neutrophils # 3.8 K/mcL (1.6-8.9); Platelet Count 128 K/mcL (140-400); Red Blood Count 3.65 M/mcL (3.82-4.97); Red Cell Distribution Width 14.8 % (11.5-14.5); Segmented Neutrophils % 66.7 %
[2018-07-05 07:03] LABS: BUN/Creatinine Ratio 25 (6-26); Blood Urea Nitrogen 21 mg/dL (8-23); Calcium 9.3 mg/dL (8.6-10.3); Carbon Dioxide 28 mEq/L (23-29); Chloride 105 mEq/L (98-107); Glucose 88 mg/dL (70-105); Osmolality,Calculated 294 (280-300); Potassium 4.1 mEq/L (3.5-5.1); Sodium 141 mEq/L (136-145); eGFR For Non-African Americans > 60 (> 60)
[2018-07-05] MEDS: Multivitamin Liquid 15 ML UDC PO SCH (07:48)
[2018-07-05] MEDS: MOM Conc 10 ML UD.LIQ PO SCH (07:48)
[2018-07-05] MEDS: Sennosides/Docusate Sodium TABLET PO SCH ×2 (07:48→22:27)
[2018-07-05] MEDS: Miconazole 2% cream 118 GM TUBE TP SCH (07:49)
[2018-07-06] MEDS: Miconazole 2% cream 118 GM TUBE TP SCH ×3 (00:24→20:28)
[2018-07-06] MEDS: Multivitamin Liquid 15 ML UDC PO SCH (08:02)
[2018-07-06] MEDS: MOM Conc 10 ML UD.LIQ PO SCH (08:03)
[2018-07-06] MEDS: Sennosides/Docusate Sodium TABLET PO SCH ×2 (08:03→20:25)
[2018-07-06] MEDS: *HR* HYDROcodone/Acet 5/325 mg TABLET PO PRN (12:50)
[2018-07-06] MEDS: Ondansetron ODT 4 MG TAB.RAPDIS SL PRN (20:25)
[2018-07-07] MEDS: Miconazole 2% cream 118 GM TUBE TP SCH ×2 (08:37→21:54)
[2018-07-07] MEDS: Multivitamin Liquid 15 ML UDC PO SCH (08:37)
[2018-07-07] MEDS: MOM Conc 10 ML UD.LIQ PO SCH (08:37)
[2018-07-07] MEDS: Sennosides/Docusate Sodium TABLET PO SCH ×2 (08:37→21:55)
[2018-07-08] MEDS: Sennosides/Docusate Sodium TABLET PO SCH ×2 (09:52→21:02)
[2018-07-08] MEDS: MOM Conc 10 ML UD.LIQ PO SCH (09:53)
[2018-07-08] MEDS: Multivitamin Liquid 15 ML UDC PO SCH (09:54)
[2018-07-08] MEDS: Miconazole 2% cream 118 GM TUBE TP SCH ×2 (10:04→21:05)
--- NOTE | 2018-07-08 16:52 | Internal Med Progress Note ---
Date of Encounter: 07/08/18 Time of Encounter: 16:45 - Assessment and plan (1) Humerus shaft fracture Current Visit: Yes Status: Acute Assessment and plan: June 23. Continue mobilization and analgesics. Vitamin D level ordered. June 26. Vitamin D level normal at 33. Continue immobilization and therapy intervention. June 28. Continue present regimen and follow-up with an [facility] orthopedist. Qualifiers: Encounter type: subsequent encounter Fracture type: closed Fracture morphology: unspecified fracture morphology Laterality: right Fracture healing: with routine healing Qualified Code(s): S42.301D - Unspecified fracture of shaft of humerus, right arm, subsequent encounter for fracture with routine healing (2) Compression fracture of L4 lumbar vertebra Current Visit: Yes Status: Acute Assessment and plan: June 23. As above. Qualifiers: Encounter type: subsequent encounter Fracture type: closed Fracture healing: with routine healing Qualified Code(s): S32.040D - Wedge compression fracture of fourth lumbar vertebra, subsequent encounter for fracture with routine healing (3) HTN (hypertension) Current Visit: No Status: Chronic Assessment and plan: June 23. Continue Coreg and hydralazine. June 26. Blood pressures show significant fluctuation. Continue present regimen. July 08. Blood pressures continue to show fluctuation. Continue Coreg and losartan. Qualifiers: Hypertension type: essential hypertension Qualified Code(s): I10 - Essential (primary) hypertension (4) Hypothyroidism Current Visit: No Status: Chronic Assessment and plan: June 23. TSH was normal at 3.769 on 06/12/2018. Continue present dose Synthroid. Qualifiers: Hypothyroidism type: unspecified Qualified Code(s): E03.9 - Hypothyroidism , unspecified (5) Rib fracture Current Visit: Yes Status: Acute Assessment and plan: July 01. Thoracic spine films showed mildly displaced left posterior fifth rib fracture with slight sclerosis possibly relating to subacute injury. Continue present regimen. Qualifiers: Encounter type: subsequent encounter Rib fracture type: single rib Fracture type: closed Laterality: left Fracture healing: with routine healing Qualified Code(s): S22.32XD - Fracture of one rib, left side, subsequent encounter for fracture with routine healing - Subjective Interval history: June 23. She has no new complaints June 26. She has no new complaints. She has no back pain. June 28. She has no new complaints. She feels she is progressing well in therapy. Her daughter requested attempt made to transfer her orthopedic care from [place] physicians to [facility] physician. This has been accomplished with appointments made for June 29 and July 02 with [facility] physicians. July 01. She has no new complaints. July 04. She has no new complaints. July 04. She has no new complaints. She was out of facility on a day pass yesterday and feels she performed satisfactorily. - Constitutional Vitals: Temp Pulse Resp BP Pulse Ox 98.3 F 67 16 150/65 98 07/08/18 07:56 07/08/18 09:00 07/08/18 07:56 07/08/18 09:00 07/08/18 07:56 Exam: She is resting comfortably in bed and appears in no acute distress. Her affect is cheerful. I reviewed her medications and lab results. Internal Medicine: Result - Labs CBC & Chem 7: 07/05/18 06:27 07/05/18 06:27 Consult Discharge Plan - Plan Referrals: Keon Marquez MD [Primary Care Provider] - 1 week
[2018-07-09] MEDS: Sennosides/Docusate Sodium TABLET PO SCH ×2 (09:05→21:31)
[2018-07-09] MEDS: MOM Conc 10 ML UD.LIQ PO SCH (09:09)
[2018-07-09] MEDS: Multivitamin Liquid 15 ML UDC PO SCH (09:09)
[2018-07-09] MEDS: Miconazole 2% cream 118 GM TUBE TP SCH ×2 (09:16→21:31)
[2018-07-10] MEDS: Multivitamin Liquid 15 ML UDC PO SCH (10:34)
[2018-07-10] MEDS: Miconazole 2% cream 118 GM TUBE TP SCH ×2 (10:35→20:18)
[2018-07-10] MEDS: MOM Conc 10 ML UD.LIQ PO SCH (10:35)
[2018-07-10] MEDS: Sennosides/Docusate Sodium TABLET PO SCH ×2 (10:36→20:18)
[2018-07-11] MEDS: MOM Conc 10 ML UD.LIQ PO SCH (08:31)
[2018-07-11] MEDS: Multivitamin Liquid 15 ML UDC PO SCH (08:32)
[2018-07-11] MEDS: Sennosides/Docusate Sodium TABLET PO SCH ×2 (08:33→20:17)
[2018-07-11] MEDS: Miconazole 2% cream 118 GM TUBE TP SCH ×2 (08:34→21:00)
--- NOTE | 2018-07-11 12:48 | Internal Med Progress Note ---
Date of Encounter: 07/11/18 Time of Encounter: 12:40 - Assessment and plan (1) Humerus shaft fracture Current Visit: Yes Status: Acute Assessment and plan: June 23. Continue mobilization and analgesics. Vitamin D level ordered. June 26. Vitamin D level normal at 33. Continue immobilization and therapy intervention. June 28. Continue present regimen and follow-up with an [facility] orthopedist. Qualifiers: Encounter type: subsequent encounter Fracture type: closed Fracture morphology: unspecified fracture morphology Laterality: right Fracture healing: with routine healing Qualified Code(s): S42.301D - Unspecified fracture of shaft of humerus, right arm, subsequent encounter for fracture with routine healing (2) Compression fracture of L4 lumbar vertebra Current Visit: Yes Status: Acute Assessment and plan: June 23. As above. Qualifiers: Encounter type: subsequent encounter Fracture type: closed Fracture healing: with routine healing Qualified Code(s): S32.040D - Wedge compression fracture of fourth lumbar vertebra, subsequent encounter for fracture with routine healing (3) HTN (hypertension) Current Visit: No Status: Chronic Assessment and plan: June 23. Continue Coreg and hydralazine. June 26. Blood pressures show significant fluctuation. Continue present regimen. July 08. Blood pressures continue to show fluctuation. Continue Coreg and losartan. Qualifiers: Hypertension type: essential hypertension Qualified Code(s): I10 - Essential (primary) hypertension (4) Hypothyroidism Current Visit: No Status: Chronic Assessment and plan: June 23. TSH was normal at 3.769 on 06/12/2018. Continue present dose Synthroid. Qualifiers: Hypothyroidism type: unspecified Qualified Code(s): E03.9 - Hypothyroidism , unspecified (5) Rib fracture Current Visit: Yes Status: Acute Assessment and plan: July 01. Thoracic spine films showed mildly displaced left posterior fifth rib fracture with slight sclerosis possibly relating to subacute injury. Continue present regimen. Qualifiers: Encounter type: subsequent encounter Rib fracture type: single rib Fracture type: closed Laterality: left Fracture healing: with routine healing Qualified Code(s): S22.32XD - Fracture of one rib, left side, subsequent encounter for fracture with routine healing - Subjective Interval history: June 23. She has no new complaints June 26. She has no new complaints. She has no back pain. June 28. She has no new complaints. She feels she is progressing well in therapy. Her daughter requested attempt made to transfer her orthopedic care from [place] [facility] to [facility] physician. This has been accomplished with appointments made for June 29 and July 02 with [facility] physicians. July 01. She has no new complaints. July 04. She has no new complaints. July 08. She has no new complaints. She was out of facility on a day pass yesterday and feels she performed satisfactorily. July 11. She has no new complaints and feels stronger. - Constitutional Vitals: Temp Pulse Resp BP Pulse Ox 98.4 F 72 14 163/83 98 07/11/18 06:31 07/11/18 07:44 07/11/18 06:31 07/11/18 07:44 07/11/18 06:31 Exam: She is resting comfortably in bed participating in therapy at this time. Her affect is cheerful. I reviewed her medications and lab results. She is anticipating discharge 07/13/2018 to [facility] at [facility]. Internal Medicine: Result - Labs CBC & Chem 7: 07/05/18 06:27 07/05/18 06:27 Consult Discharge Plan - Plan Referrals: Keon Marquez MD [Primary Care Provider] - 1 week
[2018-07-12] MEDS: Sennosides/Docusate Sodium TABLET PO SCH ×2 (08:25→20:24)
[2018-07-12] MEDS: Multivitamin Liquid 15 ML UDC PO SCH (08:26)
[2018-07-12] MEDS: MOM Conc 10 ML UD.LIQ PO SCH (08:26)
[2018-07-12] MEDS: Miconazole 2% cream 118 GM TUBE TP SCH ×2 (08:32→22:28)
[2018-07-12] MEDS: Ondansetron ODT 4 MG TAB.RAPDIS SL PRN (13:22)
[2018-07-13 06:22] VITALS: BP 156/81
[2018-07-13] MEDS: Multivitamin Liquid 15 ML UDC PO SCH (08:14)
[2018-07-13] MEDS: Sennosides/Docusate Sodium TABLET PO SCH (08:14)
[2018-07-13] MEDS: MOM Conc 10 ML UD.LIQ PO SCH (08:14)
--- NOTE | 2018-07-13 13:56 | Discharge Summary ---
Date of Encounter: 07/13/18 Time of Encounter: 13:40 - Discharge Diagnosis (1) Humerus shaft fracture Priority: Primary Status: Acute Qualifiers: Encounter type: subsequent encounter Fracture type: closed Fracture morphology: unspecified fracture morphology Laterality: right Fracture healing: with routine healing Qualified Code(s): S42.301D - Unspecified fracture of shaft of humerus, right arm, subsequent encounter for fracture with routine healing (2) Compression fracture of L4 lumbar vertebra Priority: Secondary Status: Acute Qualifiers: Encounter type: subsequent encounter Fracture type: closed Fracture healing: with routine healing Qualified Code(s): S32.040D - Wedge compression fracture of fourth lumbar vertebra, subsequent encounter for fracture with routine healing (3) HTN (hypertension) Priority: Secondary Status: Chronic Qualifiers: Hypertension type: essential hypertension Qualified Code(s): I10 - Essential (primary) hypertension (4) Hypothyroidism Priority: Secondary Status: Chronic Qualifiers: Hypothyroidism type: unspecified Qualified Code(s): E03.9 - Hypothyroidism , unspecified (5) Rib fracture Priority: Secondary Status: Acute Qualifiers: Encounter type: subsequent encounter Rib fracture type: single rib Fracture type: closed Laterality: left Fracture healing: with routine healing Qualified Code(s): S22.32XD - Fracture of one rib, left side, subsequent encounter for fracture with routine healing Hospital course: Ms. Ariza is a 88 year old female who was hospitalized at [facility] June 16- after a fall at home. She sustained right humerus shaft fracture and L4 superior endplate compression fracture, possibly acute on chronic. She had conservative nonoperative treatment for the humerus fracture with immobilizer/sling placement. She was discharged to [facility] swing bed for ongoing care needs. Initial orders were written by the discharging physician at [facility]. I saw her on June 22 and performed the swing bed history and physical. She followed with [facility] for the right humerus fracture. A nonoperative approach was recommended. She will follow with the orthopedist Dr. Hanks 07/20/2018 for another visit. She saw [facility] also for the L4 lumbar vertebral compression fracture. No further intervention is planned. Her last visit was 07/13/2018. Recommendations were made for topical Voltaren and prn oral methocarbamol. Lidoderm will be discontinued. Physical therapy and occupational therapy evaluations with ongoing intervention were done. She made satisfactory progress but it was felt she would need longer term care. Arrangements were completed on July 13 for her to be discharged to [facility] for ongoing therapy needs. - Time Spent with Patient Total time spent providing and/or coordinating discharge services: - Discharge Medications Prescriptions: Methocarbamol [Robaxin] 500 mg PO Q8HR PRN 30 Days tablet PRN Reason: Spasms Diclofenac Sodium [Voltaren] 2 gm TP TID 30 Days gel..gram. LORazepam [Ativan] 0.5 mg PO TID 14 Days #42 tablet Home Medications: Carvedilol [Coreg] 25 mg PO BID 09/16/17 [History] Nitroglycerin [Nitrostat] 0.4 mg SL Q5M PRN 09/16/17 [History] Rosuvastatin Calcium [Crestor] 10 mg PO DAILY 09/16/17 [History] Sertraline [Zoloft] 25 mg PO DAILY 09/16/17 [History] Dexlansoprazole [Dexilant] 60 mg PO DAILY 02/24/18 [History] Levothyroxine Sodium [Levoxyl] 112 mcg PO DAILY 02/24/18 [History] Ipratropium/Albuterol Neb [Duoneb] 3 ml IH Q6HR PRN 7 Days #28 vial.neb [Rx] Calcium Carbonate/Vitamin D3 [Calcium 500 + Vit D Caplet] 1 each PO BID #60 tablet 04/19/18 [Rx] Ondansetron ODT [Zofran ODT] 4 mg SL Q4HR PRN #15 tab.rapdis 06/11/18 [Rx] Docusate [Colace] 100 mg PO BID 06/24/18 [History] Olmesartan Medoxomil [Benicar] 40 mg PO DAILY 06/24/18 [History] Memantine [Namenda] 5 mg PO HS 07/08/18 [History] Triamcinolone Acet Dentl Paste [Kenalog In Orabase] 1 applic PO 1-3XD 07/08/18 [ History] Diclofenac Sodium [Voltaren] 2 gm TP TID 30 Days gel..gram. 07/13/18 [Rx] LORazepam [Ativan] 0.5 mg PO TID 14 Days #42 tablet 07/13/18 [Rx] MOM Conc [MILK OF MAGNESIA conc] 10 ml PO DAILY ud.liq 07/13/18 [Rx] Methocarbamol [Robaxin] 500 mg PO Q8HR PRN 30 Days tablet 07/13/18 [Rx] Allergies/Adverse Reactions: 3 Allergy/AdvReac Type Severity Reaction Status Date / Time codeine Allergy Rash Verified 09/15/17 16:16 Opioids - Morphine Analogues Allergy Rash Verified 09/15/17 16:16 Sulfa (Sulfonamide Allergy Rash Verified 09/15/17 16:16 Antibiotics) cephalexin AdvReac Nausea Verified 04/19/18 13:13 Date of admission: 06/21/18 18:41 Primary care physician: Keon Marquez MD Consults: 06/21/18 21:56 Consult to Occupational Therapy [CONS] Routine Comment: To evaluate, develop, implement plan of care. Reason for Consult: To evaluate, develop, implement plan of care. Does patient have active BEDREST order?: No Is patient medically & hemodynamically stable?: Yes Patient assessed for mobility or mobilized this visit?: Yes Consult to Physical Therapy [CONS] Routine Comment: To evaluate, develop, implement plan of care. Reason for Consult: To evaluate, develop, implement plan of care. Does patient have active BEDREST order?: No Is patient medically & hemodynamically stable?: Yes Patient assessed for mobility or mobilized this visit?: Yes Consult to Link Cutter [CONS] Routine Reason for SW Consult: Discharge Planning - Constitutional Vitals: Temp Pulse Resp BP Pulse Ox 98.4 F 77 16 156/81 96 07/13/18 06:21 07/13/18 06:21 07/13/18 06:21 07/13/18 06:21 07/13/18 06:21 - Patient Status Disposition: Transfer SNF - Discharge Instructions - Diet and Activity Activity: as per physical therapy Diet: low fat, low cholesterol
--- NOTE | 2018-07-13 14:04 | Physician Discharge Referral ---
ExtendedCare Referral Info Transfer To: [facility] Provider in Charge: Raffy Provider in Charge after Transfer: PCP (Raffy) - Diagnosis (1) Humerus shaft fracture Priority: Primary Status: Acute (2) Compression fracture of L4 lumbar vertebra Priority: Secondary Status: Acute (3) HTN (hypertension) Priority: Secondary Status: Chronic (4) Hypothyroidism Status: Chronic (5) Rib fracture Priority: Secondary Status: Acute Prognosis: Fair Aware of Diagnosis: Patient, Family Aware of Prognosis: Patient, Family - Transfer Medications Prescriptions: Methocarbamol [Robaxin] 500 mg PO Q8HR PRN 30 Days tablet PRN Reason: Spasms Diclofenac Sodium [Voltaren] 2 gm TP TID 30 Days gel..gram. LORazepam [Ativan] 0.5 mg PO TID 14 Days #42 tablet Home Medications: Carvedilol [Coreg] 25 mg PO BID 09/16/17 [History] Nitroglycerin [Nitrostat] 0.4 mg SL Q5M PRN 09/16/17 [History] Rosuvastatin Calcium [Crestor] 10 mg PO DAILY 09/16/17 [History] Sertraline [Zoloft] 25 mg PO DAILY 09/16/17 [History] Dexlansoprazole [Dexilant] 60 mg PO DAILY 02/24/18 [History] Levothyroxine Sodium [Levoxyl] 112 mcg PO DAILY 02/24/18 [History] Ipratropium/Albuterol Neb [Duoneb] 3 ml IH Q6HR PRN 7 Days #28 vial.neb [Rx] Calcium Carbonate/Vitamin D3 [Calcium 500 + Vit D Caplet] 1 each PO BID #60 tablet 04/19/18 [Rx] Ondansetron ODT [Zofran ODT] 4 mg SL Q4HR PRN #15 tab.rapdis 06/11/18 [Rx] Docusate [Colace] 100 mg PO BID 06/24/18 [History] Olmesartan Medoxomil [Benicar] 40 mg PO DAILY 06/24/18 [History] Memantine [Namenda] 5 mg PO HS 07/08/18 [History] Triamcinolone Acet Dentl Paste [Kenalog In Orabase] 1 applic PO 1-3XD 07/08/18 [ History] Diclofenac Sodium [Voltaren] 2 gm TP TID 30 Days gel..gram. 07/13/18 [Rx] LORazepam [Ativan] 0.5 mg PO TID 14 Days #42 tablet 07/13/18 [Rx] MOM Conc [MILK OF MAGNESIA conc] 10 ml PO DAILY ud.liq 07/13/18 [Rx] Methocarbamol [Robaxin] 500 mg PO Q8HR PRN 30 Days tablet 07/13/18 [Rx] Allergies/Adverse Reactions: 3 Allergy/AdvReac Type Severity Reaction Status Date / Time codeine Allergy Rash Verified 09/15/17 16:16 Opioids - Morphine Analogues Allergy Rash Verified 09/15/17 16:16 Sulfa (Sulfonamide Allergy Rash Verified 09/15/17 16:16 Antibiotics) cephalexin AdvReac Nausea Verified 04/19/18 13:13 - Respiratory Orders Smoking Cessation: Smoking cessation has been advised. For more information, call the [place] Tobacco Quit Line at 3-015-EANI-NOW. - Lab Orders Lab Orders: Other (include drug levels w/frequency) (CBC with differential, BMP in 5 days) - Rehabiliation Orders Rehab Potential: Good Rehab Orders: Evaluation for Physical Therapy, Evaluation for Occupational Therapy - Diet Orders Cardiac CERTIFICATION: I certify that the transfer of the above named patient to an Extended Care Facility is necessary for the continuing treatment of the diagnosis listed. The above information is true and accurate reflection of patient's current condition. Confidential - Redisclosure prohibited without a patient's written consent.
[2018-07-13] MEDS: Miconazole 2% cream 118 GM TUBE TP SCH (14:20)
== END 2018-07-13 15:40 | DRG 560 ==
LOC: INPPIK 18:41
PROVIDERS: ADMIT Internal Medicine; ATTEND Internal Medicine